=== PATIENT | male | born 1965 | race Caucasian/White ===

== ENCOUNTER → 2019-03-15 | Outpatient (CLI) | payer OTHER ==
--- NOTE | 2019-03-16 07:43 | Diagnostic Imaging Report ---
Examination: MRI SPINE LUMBAR WO CONTRAST History: Low back pain with radiation to the left hip for the past 3 weeks. Comparison studies: None Technique: Sagittal, coronal and axial T2 , sagittal T1 and STIR; axial spin density oblique. Findings: Number of lumbar vertebral bodies: Five. Alignment: Normal lordosis. No scoliosis. Soft tissues: No T2 hyperintense inflammatory changes. Posterior paraspinal soft tissues and muscles: No abnormality. Lower thoracic cord: Normal in signal and morphology. The tip of the conus is at T12-L1. Cauda equina: No masses. No arachnoiditis. Vertebrae: No fractures, infection or neoplasm. A 1.1 cm ovoid shaped T1 and T2 hyperintense and STIR hypointense lesion is demonstrated in the L3 vertebral body, consistent with a hemangioma. Degenerative changes: L1-L2: No abnormalities. L2-L3: Asymmetric to the left disc bulge. No foraminal or canal stenosis. L3-L4: Mild diffuse disc bulge results in mild right neural foraminal narrowing. No left foraminal or canal stenosis. L4-L5: Left central and subarticular disc protrusion contacts the left facet joint and impinges the descending left L5 nerve root. No canal stenosis. Mild bilateral neural foraminal narrowing due to an asymmetric to the left disc bulge. Central annular fissure. L5-S1: Tiny right central disc protrusion superimposed on asymmetric to left disc bulge results in mild left neural foraminal narrowing. No right foraminal or canal stenosis. Right central annular fissure. IMPRESSION: Degenerative changes of L2-L3 through L5-S1 with impingement of the descending left L5 nerve root at L4-L5 by a large left central and subarticular disc protrusion. No canal stenosis. No significant (not moderate or severe) foraminal stenosis. Annular fissures at L4-L5 and L5-S1. Signed by: Dr. Saima Lr M.D. on 03/16/2019 7:40 AM
== END ==
LOC: MRI 07:19
PROVIDERS: ATTEND Internal Medicine
DX: M54.5 Low back pain (principal)
CPT/HCPCS: 72148

== ENCOUNTER → 2019-03-20 | Outpatient (CLI) | payer OTHER ==
[~2019-03-20] MED LIST: IOPAMIDOL 370 MG/ML 200 ML INFUS..BTL INJ ONE; SODIUM CHLORIDE 0.9% 250ML 250 ML ONE; SODIUM CHLORIDE 0.9% 50ML 0 ML ONE
[2019-03-20 15:23] LABS: BLOOD UREA NITROGEN 23 mg/dL (7-26); BUN/CREATININE RATIO 21 (6-25); CREATININE, SERUM 1.07 mg/dL (0.72-1.25); EST GLOMERULAR FILTRATION RATE > 60 ML/MIN (60-)
--- NOTE | 2019-03-20 18:07 | Diagnostic Imaging Report ---
EXAM: CT Abdomen and Pelvis WITH intravenous contrast - Hematuriaprotocol INDICATION: Microscopic hematuria COMPARISON: None. TECHNIQUE: Abdomen and pelvis were scanned utilizing a multidetector helical scanner from the lung base to the pubic symphysis before and after administration of IV contrast. Coronal and sagittal reformations were obtained. Hematuria protocol was used. Scan was performed prior to contrast administration and during the renal excretory phase. IV CONTRAST: 150 mL of Isovue 370 COMPLICATIONS: None Dose modulation, iterative reconstruction, and/or weight based adjustment of the mA/kV was utilized to reduce the radiation dose to as low as reasonably achievable. FINDINGS: LOWER THORAX: Normal. HEPATOBILIARY: No focal hepatic lesions. No biliary ductal dilatation. The gallbladder appears unremarkable. SPLEEN: No splenomegaly. PANCREAS: No focal masses or ductal dilatation. ADRENALS: No adrenal nodules. KIDNEYS/URETERS: No hydronephrosis, stones, or solid mass lesions. PELVIC ORGANS/BLADDER: Unremarkable. PERITONEUM / RETROPERITONEUM: No free air or fluid. LYMPH NODES: No lymphadenopathy. VESSELS: Unremarkable. GI TRACT: No distention or wall thickening. Diverticulosis without evidence of acute diverticulitis. BONES AND SOFT TISSUES: No acute osseous abnormalities. Degenerative changes of the thoracolumbar spine. IMPRESSION: 1. No acute findings in the abdomen or pelvis. 2. Colonic diverticulosis without evidence of acute diverticulitis Signed by: Live Pollack MD on 03/20/2019 6:04 PM
== END ==
LOC: CT 14:34
PROVIDERS: ATTEND Urology
DX: R31.21 Asymptomatic microscopic hematuria (principal)
CPT/HCPCS: 36415; 74178; 82565; 84520; J7050; Q9967

== ENCOUNTER 2019-04-05 06:21 | Observation (INO) | payer OTHER ==
[2019-04-03 09:18] LABS: BASOPHILS % 0.7 % (0.0-1.0); EOSINOPHILS # (AUTO) 0.1 (0.0-0.4); EOSINOPHILS % 2.2 % (0.0-6.0); HEMATOCRIT 50.3 % (38.2-49.6); HEMOGLOBIN 17.4 g/dL (14.0-18.0); LYMPHOCYTES # (AUTO) 1.3 (1.0-3.2); LYMPHOCYTES % 24.5 % (18.0-39.1); MEAN CORPUSCULAR HEMOGLOBIN 31.4 pg (28-32); MEAN CORPUSCULAR HGB CONC 34.6 g/dL (31-35); MEAN CORPUSCULAR VOLUME 90.6 fL (81-99); MONOCYTES # (AUTO) 0.4 (0.2-0.8); MONOCYTES % 8.1 % (4.4-11.3); NEUTROPHILS # (AUTO) 3.4 (2.1-6.9); NEUTROPHILS % 64.3 % (38.7-80.0); PLATELET COUNT 151 x10e3/uL (140-360); RED BLOOD COUNT 5.55 x10e6/uL (4.3-5.7); RED CELL DISTRIBUTION WIDTH 12.4 % (11.7-14.4)
[2019-04-03 09:30] LABS: INR 0.86; PROTHROMBIN TIME 12.2 seconds (11.9-14.5)
[2019-04-03 09:31] LABS: PARTIAL THROMBOPLASTIN TIME 33.7 seconds (23.8-35.5)
[2019-04-03 09:38] LABS: ANION GAP 14.3 mmol/L (8-16); BLOOD UREA NITROGEN 17 mg/dL (7-26); BUN/CREATININE RATIO 16 (6-25); CALCIUM 10.1 mg/dL (8.4-10.2); CARBON DIOXIDE 28 mmol/L (22-29); CHLORIDE 98 mmol/L (98-107); CREATININE, SERUM 1.08 mg/dL (0.72-1.25); EST GLOMERULAR FILTRATION RATE > 60 ML/MIN (60-); GLUCOSE 93 mg/dL (74-118); POTASSIUM 4.3 mmol/L (3.5-5.1); SODIUM 136 mmol/L (136-145)
--- NOTE | 2019-04-03 10:15 | Diagnostic Imaging Report ---
EXAM: CHEST 2 VIEWS DATE: 04/03/2019 8:59 AM INDICATION: L4-L5 disc herniation, preoperative evaluation COMPARISON: CT abdomen/pelvis from 03/20/2019 FINDINGS: The trachea is midline. There are mild left basilar opacity suggestive of atelectasis. There is no evidence for focal consolidation, pneumothorax, or significant pleural effusion. The cardiomediastinal silhouette and pulmonary vasculature are within normal limits. No acute osseous abnormalities identified. IMPRESSION: No acute cardiopulmonary process identified. Signed by: Dr. León Mir MD on 04/03/2019 10:12 AM
[~2019-04-05] VITALS: Ht 175.3 cm; Wt 111.6 kg
[~2019-04-05 06:21] MED LIST changes: +FLONASE; -IOPAMIDOL 370 MG/ML 200 ML INFUS..BTL INJ ONE; +LOSARTAN-HCTZ1 EACH PO; -SODIUM CHLORIDE 0.9% 250ML 250 ML ONE; -SODIUM CHLORIDE 0.9% 50ML 0 ML ONE; +TAGAMET HB200 MG PO; +TESTOSTERO200 MG/1 M INJ; +VIAGRA50 MG PO
--- OUTSIDE RECORDS SUMMARY | 2019-04-05 06:23 | XMS REPORT ---
Author Author [facility] Address Unknown Phone Unavailable Care Team Providers Care Motor Polarizer Name Role Phone PAM OBRIEN Unavailable Unavailable HAMPEL, MATT Unavailable Unavailable ORAHOOD, MONTE Unavailable Unavailable Problems This patient has no known problems. Allergies, Adverse Reactions, Alerts This patient has no known allergies or adverse reactions. Medications This patient has no known medications. Results Test Description Test Time Test Comments Text Results Atomic Results Result Comments CHEST 2 VIEWS 2019-04-03 10:10:00 [facility] [address] [place] [id number] Patient Name: RAMESH CAICEDO MR #: [id number] : 1965 Age/Sex: 54/M Req #: [id number] Adm Physician: Ordered by: PAM OBRIEN MD Report #: [id number] Location: OR Room/Bed: Procedure: [id number] DX/CHEST 2 VIEWS Exam Date: Exam Time: REPORT STATUS: Signed EXAM: CHEST 2 VIEWS DATE: 04/03/2019 8:59 AM INDICATION: L4-L5 disc herniation, preoperative evaluation COMPARISON: CT abdomen/pelvis from 03/20/2019 FINDINGS: The trachea is midline. There are mild left basilar opacity suggestive of atelectasis. There is no evidence for focal consolidation, pneumothorax, or significant pleural effusion. The cardiomediastinal silhouette and pulmonary vasculature are within normal limits. No acute osseous abnormalities identified. IMPRESSION: No acute cardiopulmonary process identified. Signed by: Dr. León Mir MD on 04/03/2019 10:12 AM Dictated By: LEÓN MIR MD 1012 Transcribed By: VERONA on 04/03/19 1012 COPY TO: PAM OBRIEN MD CT ABDOMEN/PELVIS WOW 2019-03-20 17:56:00 [place] [address] Patient Name: RAMESH CAICEDO MR #: [id number] : 1965 Age/Sex: 54/M Req #: [id number] Adm Physician: Ordered by: MATT ZENG MD Report #: [id number] Location: CT Room/Bed: Procedure: [id number] CT/CT ABDOMEN/PELVIS WOW Exam Date: 03/20/19 Exam Time: 1530 REPORT STATUS: Signed EXAM: CT Abdomen and Pelvis WITH intravenous contrast - Hematuriaprotocol INDICATION: Microscopic hematuria COMPARISON: None. TECHNIQUE: Abdomen and pelvis were scanned utilizing a multidetector helical scanner from the lung base to the pubic symphysis before and after administration of IV contrast. Coronal and sagittal reformations were obtained. Hematuria protocol was used. Scan was performed prior to contrast administration and during the renal excretory phase. IV CONTRAST: 150 mL of Isovue 370 COMPLICATIONS: None Dose modulation, iterative reconstruction, and/or weight based adjustment of the mA/kV was utilized to reduce the radiation dose to as low as reasonably achievable. FINDINGS: LOWER THORAX: Normal. HEPATOBILIARY: No focal hepatic lesions. No biliary ductal dilatation. The gallbladder appears unremarkable. SPLEEN: No splenomegaly. PANCREAS: No focal masses or ductal dilatation. ADRENALS: No adrenal nodules. KIDNEYS/URETERS: No hydronephrosis, stones, or solid mass lesions. PELVIC ORGANS/BLADDER: Unremarkable. PERITONEUM / RETROPERITONEUM: No free air or fluid. LYMPH NODES: No lymphadenopathy. VESSELS: Unremarkable. GI TRACT: No distention or wall thickening. Diverticulosis without evidence of acute diverticulitis. BONES AND SOFT TISSUES: No acute osseous abnormalities. Degenerative changes of the thoracolumbar spine. IMPRESSION: 1. No acute findings in the abdomen or pelvis. 2. Colonic diverticulosis without evidence of acute diverticulitis Signed by: Live Astorga MD on 03/20/2019 6:04 PM Dictated By: LIVE ASTORGA MD 03 Transcribed By: VERONA on 03/20/191803 COPY TO: MATT ZENG MD MRI SPINE LUMBAR WO 2019-03-15 17:41:00 [place] [address] Patient Name: RAMESH CAICEDO MR #: [id number] : 1965 Age/Sex: 54/M Req #: [id number] Adm Physician: Ordered by: KASSIE JENNINGS MD Report #: [id number] Location: MRI Room/Bed: Procedure: [id number] MRI/MRI SPINE LUMBAR WO Exam Date: Exam Time: REPORT STATUS: Signed Examination: MRI SPINE LUMBAR WO CONTRAST History: Low back pain with radiation to the left hip for the past 3 weeks. Comparison studies: None Technique: Sagittal, coronal and axial T2 , sagittal T1 and STIR; axial spin density oblique. Findings: Number of lumbar vertebral bodies: Five. Alignment: Normal lordosis. No scoliosis. Soft tissues: No T2 hyperintense inflammatory changes. Posterior paraspinal soft tissues and muscles: No abnormality. Lower thoracic cord: Normal in signal and morphology. The tip of the conus is at T12-L1. Cauda equina: No masses. No arachnoiditis. Vertebrae: No fractures, infection or neoplasm. A 1.1 cm ovoid shaped T1 and T2 hyperintense and STIR hypointense lesion is demonstrated in the L3 vertebral body, consistent with a hemangioma. Degenerative changes: L1-L2: No abnormalities. L2-L3: Asymmetric to the left disc bulge. No foraminal or canal stenosis. L3-L4: Mild diffuse disc bulge results in mild right neural foraminal narrowing. No left foraminal or canal stenosis. L4-L5: Left central and subarticular disc protrusion contacts the left facet joint and impinges the descending left L5 nerve root. No canal stenosis. Mild bilateral neural foraminal narrowing due to an asymmetric to the left disc bulge. Central annular fissure. L5- S1: Tiny right central disc protrusion superimposed on asymmetric to left disc bulge results in mild left neural foraminal narrowing. No right foraminal or canal stenosis. Right central annular fissure. IMPRESSION: Degenerative changes of L2-L3 through L5-S1 with impingement of the descending left L5 nerve root at L4-L5 by a large left central and subarticular disc protrusion. No canal stenosis. No significant (not moderate or severe) foraminal stenosis. Annular fissures at L4-L5 and L5-S1. Signed by: Dr. Saima Lr M.D. on 03/16/2019 7:40 AM Dictated By: SAIMA SCHAEFFER MD 9 Transcribed By: VERONA on 03/16/19739 COPY TO: KASSIE JENNINGS MD
[2019-04-05] MEDS ORDERED: CEFAZOLIN SOD 1 GM/NS 50ML 100 ML IV ONE (07:06)
--- NOTE | 2019-04-05 07:15 | NUR ---
SPIRITUAL CARE - Pre-Surgery Assessment: Pt in bed. Pt's at bedside. Pt reported supportive attention from family and friends. Intervention: I provided pastoral presence, hospitality, and sympathetic listening. I acquainted pt with availability of handbag designer while hospitalized. Outcome: Pt expressed appreciation for visit. No need for follow up indicated at this time. [facility] Spiritual Care Department O: [phone] Pager: [phone] ([phone] number calling from)
[2019-04-05] MEDS ORDERED: SUGAMMADEX SODIUM 200 MG/2 ML VIAL IV ONE (09:09)
[2019-04-05] MEDS ORDERED: MAGNESIUM/ALUMINUM/SIMETHICONE 30 ML UDC PO PRN (09:15)
[2019-04-05] MEDS ORDERED: ONDANSETRON HCL INJ 2MG/ML 2ML 2 MG/ML VIAL IV PRN (09:15)
[2019-04-05] MEDS ORDERED: PROMETHAZINE HCL (IM) 25 MG/ML VIAL IM PRN (09:15)
[2019-04-05] MEDS ORDERED: CARISOPRODOL 350 MG TAB PO PRN (09:15)
[2019-04-05] MEDS ORDERED: MORPHINE SULFATE INJ 4 MG/ML INJ 1ML IM PRN (09:15)
[2019-04-05] MEDS ORDERED: ZOLPIDEM TARTRATE 5 MG TAB PO PRN (09:15)
[2019-04-05] MEDS ORDERED: ACETAMINOPHEN 325 MG TAB PO PRN (09:15)
[2019-04-05] MEDS ORDERED: CEPACOL SORE THROAT LOZENGES PO PRN (09:15)
[2019-04-05] MEDS ORDERED: HYDROMORPHONE 2MG/ML 2 MG/ML ML IV PRN (09:15)
[2019-04-05] MEDS ORDERED: FENTANYL CITRATE/PF 100MCG/2 ML INJ ONE ×2 (09:47→18:14)
--- NOTE | 2019-04-05 09:53 | Diagnostic Imaging Report ---
Lumbar spine, one view Clinical indications: L4-L5 disc herniation. Surgical localization Impression: Surgical instrument projects towards the L4-L5 disc level. Signed by: Live Pollack MD on 04/05/2019 9:49 AM
--- NOTE | 2019-04-05 11:03 | NUR ---
PT TO THE FLOOR AT THIS TIME. VITALS WNL. PT DENIES NEEDS AT THIS TIME.
[2019-04-05 11:06] VITALS: BP 128/77
[2019-04-05 11:30] VITALS: BP 128/77
[2019-04-05] MEDS: LACTATED RINGER'S 1,000 ML IV SCH ×2 (12:25→19:50)
[2019-04-05] MEDS: CEFAZOLIN SOD 1 GM/NS 50ML 50 ML IV SCH ×2 (14:49→21:10)
[2019-04-05 15:04] VITALS: BP 125/78
--- NOTE | 2019-04-05 16:00 | Operative Report ---
DATE OF PROCEDURE: 04/05/2019 SURGEON: Dax Lui MD PREOPERATIVE DIAGNOSIS: Left L4-5 disk herniation with radiculopathy. POSTOPERATIVE DIAGNOSIS: Left L4-5 disk herniation with radiculopathy. PROCEDURE: Left L4-5 laminotomy, medial facetectomy, and microsurgical diskectomy. ANESTHESIA: General. INDICATIONS: The patient is a 54-year-old man, who presents with a left L4-5 disk herniation with L5 radiculopathy and was taken to surgery for microsurgical diskectomy. PROCEDURE IN DETAIL: After induction of general anesthesia, the patient was placed on the operating table in prone position over Hao frame. Lumbar region was prepped and draped in sterile fashion. A preoperative x-ray was obtained. A small midline incision was created over the L4-5 region. The lumbar fascia was opened to left of midline and subperiosteal dissection was carried out to expose the left-sided L4 and L5 lamina and the medial aspect of the L4-L5 facet joint. A second x-ray confirmed correct localization. The operating microscope was brought in. A high-speed drill equipped with abel bur was used to drill the inferior aspect of lamina of L4 and the medial rim of the L4-L5 facet joint and superior rim of the lamina of L5. The ligamentum flavum was resected and the dural sac and L5 nerve root were exposed. The nerve root was slightly retracted medially. The epidural veins were bipolar coagulated and divided with micro scissors. The herniated disk material immediately came into view. The posterior longitudinal ligament was incised with the tip of a #11 blade and the disk herniation was retrieved and removed with a micro pituitary rongeur, completely decompressing the L5 nerve root. The opening into the annulus of the disk was enlarged with a #11 blade and the loose contents of the L4-L5 disk were conservatively evacuated with curettes and pituitary rongeurs. Meticulous hemostasis was secured. Retractor was removed. The wound was copiously irrigated with bacitracin solution. The lumbar fascia was closed with 0 Vicryl suture. Subcutaneous layer was closed with 2-0 Vicryl sutures. The skin was closed with 3-0 Monocryl sutures in subcuticular fashion. Steri-Strips and dressing were applied. The patient was awakened, extubated, and taken to postanesthesia care unit in stable condition. No intraoperative complications were encountered. ESTIMATED BLOOD LOSS: 10 mL. Dax Lui MD PP/ARLENE /[id number]
[2019-04-05] MEDS: FAMOTIDINE 20 MG TAB PO SCH (16:40)
[2019-04-05] MEDS: OXYCODONE/ACETAMINOPHEN 5-325 1 EACH TABLET PO PRN ×2 (16:45→21:10)
[2019-04-05] MEDS ORDERED: PROPOFOL IV EMULSION 10 MG/ML 20 ML VIAL ONE (17:49)
[2019-04-05] MEDS ORDERED: ROCURONIUM BROMIDE 10 MG/ML 5ML VIAL ONE (17:49)
[2019-04-05] MEDS ORDERED: ONDANSETRON HCL INJ 2MG/ML 2ML 2 MG/ML VIAL ONE (17:49)
[2019-04-05] MEDS ORDERED: DEXAMETHASONE SOD PHOS INJ 4 MG/ML VIAL ONE (17:49)
[2019-04-05] MEDS ORDERED: SEVOFLURANE INHAL SOLN 250 ML PEN BTL ONE (17:49)
[2019-04-05] MEDS ORDERED: LIDOCAINE HCL 2% LOCAL INJ 5 ML SDV VIAL INJ ONE (17:49)
[2019-04-05] MEDS ORDERED: ACETAMINOPHEN 1000 MG/100 ML IV ONE (17:49)
[2019-04-05] MEDS ORDERED: MIDAZOLAM HCL 2 MG/2 ML VIAL ONE (18:14)
[2019-04-05 20:00] VITALS: BP 130/71
[2019-04-05 23:43] VITALS: BP 131/58
[2019-04-06 04:00] VITALS: BP 115/57
[2019-04-06] MEDS: LACTATED RINGER'S 1,000 ML IV SCH (04:10)
[2019-04-06] MEDS: CEFAZOLIN SOD 1 GM/NS 50ML 50 ML IV SCH (06:00)
--- NOTE | 2019-04-06 07:00 | NUR ---
RECEIVED BEDSIDE REPORT FROM DISPATCHER CLERK RN. PT DENIES NEEDS AT THIS TIME.
[2019-04-06 07:40] VITALS: BP 121/57
[2019-04-06 08:00] VITALS: BP 121/57
[2019-04-06] MEDS: FAMOTIDINE 20 MG TAB PO SCH (08:50)
[2019-04-06] MEDS ORDERED: LOSARTAN POTASSIUM 100 MG TAB PO SCH (09:00)
[2019-04-06] MEDS: OXYCODONE/ACETAMINOPHEN 5-325 1 EACH TABLET PO PRN (12:04)
[2019-04-06 12:14] VITALS: BP 125/56
[2019-04-06] MEDS ORDERED: NORCO 7.5-3251 EACH PO (12:27)
== END 2019-04-06 13:28 | disposition home or self-care (01) ==
LOC: OR 06:21 → PACU V 09:16 → IMCU 10:50
PROVIDERS: ADMIT Neurological Surgery; ATTEND Neurological Surgery
DX: M51.16 Intervertebral disc disorders with radiculopathy, lumbar region (principal); Z91.013 Allergy to seafood; J45.909 Unspecified asthma, uncomplicated; I10 Essential (primary) hypertension; E78.5 Hyperlipidemia, unspecified; R12 Heartburn; G47.33 Obstructive sleep apnea (adult) (pediatric)
CPT/HCPCS: 36415; 63047; 71046; 72020; 80048; 85025; 85610; 85730; 86850; 86900; 88304; 93005; G0378 ×2; J0131; J0690 ×2; J1100; J1170; J2001; J2250; J2405; J2704; J3010; J7121

== ENCOUNTER → 2019-09-21 | Day surgery (SDC) | payer OTHER ==
[2019-09-18 14:15] LABS: ANION GAP 14.5 mmol/L (8-16); BLOOD UREA NITROGEN 18 mg/dL (7-26); BUN/CREATININE RATIO 17 (6-25); CALCIUM 9.9 mg/dL (8.4-10.2); CARBON DIOXIDE 27 mmol/L (22-29); CHLORIDE 101 mmol/L (98-107); CREATININE, SERUM 1.04 mg/dL (0.72-1.25); EST GLOMERULAR FILTRATION RATE > 60 ML/MIN (60-); GLUCOSE 84 mg/dL (74-118); POTASSIUM 4.5 mmol/L (3.5-5.1); SODIUM 138 mmol/L (136-145)
[~2019-09-21] MED LIST changes: +B&O 60MG R/S 60 MG SUPP PR ONE; +CEFTRIAXONE SOD 1 GM/NS 50 ML 50 ML IV ONE; +IOPAMIDOL 300MG/ML 50ML INFUS..BTL IV ONE; +LIDOCAINE HCL 2% LOCAL INJ 5 ML SDV VIAL INJ ONE; +NORCO 7.5-3251 EACH PO; +OMEPRAZOLE40 MG PO; +PROPOFOL IV EMULSION 10 MG/ML 20 ML VIAL ONE; +SEVOFLURANE INHAL SOLN 250 ML PEN BTL ONE
[2019-09-21 10:15] VITALS: BP 135/82
--- NOTE | 2019-09-23 02:25 | Operative Report ---
DATE OF PROCEDURE: 09/21/2019 SURGEON: Brenton Marrero MD PREOPERATIVE DIAGNOSIS: Microhematuria. POSTOPERATIVE DIAGNOSIS: Microhematuria. OPERATIONS PERFORMED: 1. Cystourethroscopy with bilateral ureteral catheterization and retrograde ureteropyelography. 2. Interpretation of retrograde ureteropyelography, no radiologist present. 3. Supervision of fluoroscopy, no radiologist present. ANESTHESIA: General. COMPLICATIONS: None. CLINICAL SUMMARY: Maikel Sullivan is a 54-year-old man with microhematuria. He was brought for the above procedures. He is aware of the risks of bleeding, infection, injury to adjacent structures, need for additional procedures and elected to proceed. OPERATIVE PROCEDURE IN DETAIL: Informed consent was verified. Maikel Sullivan was properly identified and taken to the operating room, placed on the cystoscopy table in supine position. Anesthesia was uneventfully begun. The patient was then carefully and gently repositioned in the dorsal lithotomy position and all pressure points well padded. His genitalia were prepared and draped in usual sterile fashion. A 22.5-Bermudian cystoscope sheath with the visual obturator in place was atraumatically inserted into the patient's urethra. It was guided unremarkable urethra through the normal sphincteric region through the prostate bed, which was significant for early BPH and into the patient's bladder. A panendoscopy revealed minimal amount of erythema along the posterior bladder wall. There were mild trabeculations and normally positioned configured ureteral orifices were identified. There were no tumors, no stones, and no diverticula. Unobstructed drainage was observed bilaterally fluoroscopically. A ureteral catheter was used to cannulate each ureter and retrograde ureteral pyelograms were performed. Interpretation of retrograde ureteropyelography contrast was instilled in retrograde fashion bilaterally. There were no tumors, no stones, and no diverticula. Unobstructed drainage was observed bilaterally fluoroscopically. The patient's bladder was drained. Cystoscope was withdrawn. Belladonna and opium suppository were placed revealing a 25 g prostate that is smooth, non-fluctuant without any nodules. The patient was then uneventfully reversed from anesthesia and taken to recovery room in stable condition. There were no complications. The patient tolerated the procedure well. PLANS: Will be to follow the patient up on a long-term basis. Upon followup, we plan to perform uroflowmetry and bladder ultrasonography in order to evaluate his voiding function. Brenton MD MOISES Marrero/ARLENE /[id number] cc: Ramesh Maradiaga MD
== END | disposition home or self-care (01) ==
LOC: OR 07:15
PROVIDERS: ATTEND Urology
DX: R31.29 Other microscopic hematuria (principal); N40.0 Benign prostatic hyperplasia without lower urinary tract symptoms; N32.89 Other specified disorders of bladder; I10 Essential (primary) hypertension; G47.30 Sleep apnea, unspecified; G25.81 Restless legs syndrome; K21.9 Gastro-esophageal reflux disease without esophagitis; R42 Dizziness and giddiness; Z91.013 Allergy to seafood
CPT/HCPCS: 36415; 52005; 74420; 80048; 87635; 93005; J0696; J2001; J2704; Q9967

== ENCOUNTER → 2021-05-26 | Day surgery (SDC) | payer OTHER ==
[~2021-05-26] MED LIST changes: -B&O 60MG R/S 60 MG SUPP PR ONE; -CEFTRIAXONE SOD 1 GM/NS 50 ML 50 ML IV ONE; +CLOMIPHENE CITR50 MG PO; +FENTANYL CITRATE/PF 100MCG/2 ML INJ ONE; +GLUCAGON FOR INJ 1 MG VIAL ONE; -IOPAMIDOL 300MG/ML 50ML INFUS..BTL IV ONE; +METAMUCIL0.4 GM PO; +MIDAZOLAM HCL 2 MG/2 ML VIAL ONE; +POVIDONE IODINE 0.05% 0.05 % ML PO ONE; -SEVOFLURANE INHAL SOLN 250 ML PEN BTL ONE; +VITAMIN D310 MCG PO; +XYZAL5 MG PO
[2021-05-26 12:45] VITALS: BP 127/73
== END | disposition home or self-care (01) ==
LOC: OR 09:55
PROVIDERS: ATTEND Internal Medicine Gastroenterology
DX: Z12.11 Encounter for screening for malignant neoplasm of colon (principal); D12.3 Benign neoplasm of transverse colon; K64.8 Other hemorrhoids; K44.9 Diaphragmatic hernia without obstruction or gangrene; K21.9 Gastro-esophageal reflux disease without esophagitis; G47.33 Obstructive sleep apnea (adult) (pediatric); M47.812 Spondylosis without myelopathy or radiculopathy, cervical region; J45.909 Unspecified asthma, uncomplicated; I10 Essential (primary) hypertension; E78.5 Hyperlipidemia, unspecified; F41.9 Anxiety disorder, unspecified; Z91.013 Allergy to seafood; Z01.810 Encounter for preprocedural cardiovascular examination; Z01.812 Encounter for preprocedural laboratory examination; Z20.822 Contact with and (suspected) exposure to COVID-19; Z79.899 Other long term (current) drug therapy; Z68.41 Body mass index [BMI] 40.0-44.9, adult; Z86.16 Personal history of COVID-19
CPT/HCPCS: 45385; 93005; J1610; J2001; J2250; J2704; J3010; U0002